=== PATIENT | male | born 1970 | race Caucasian/White ===

== ENCOUNTER → 2023-07-23 15:27 | Outpatient (CLI) | payer OTHER, SELFPAY ==
--- NOTE | ~2023-07-23 | XR_ITS ---
EXAMINATION: XR abdomen/kub 1V INDICATION: Left flank pain TECHNIQUE: Supine views of the abdomen were obtained on 2 radiographs. COMPARISON: Outside hospital CT dated 07/08/2023 FINDINGS: A 4 mm stone projects in the expected location of the left mid ureter lateral to the left L 4 transverse process. The stone was within the left kidney on the comparison examination. The bowel g as pattern is normal. Changes of right hip arthroplasty are noted. IMPRESSION: 1. 4 mm stone in the expected location of the left mid ureter. Reviewed, dictated and finalized at location F.
== END ==
PROVIDERS: PCP Urology; Visit Provider Urology
DX: N20.1 Calculus of ureter (principal)
CPT/HCPCS: 74018

== ENCOUNTER → 2023-07-31 11:51 | Outpatient (CLI) | payer OTHER, SELFPAY ==
--- NOTE | ~2023-07-31 | CT_ITS ---
EXAMINATION: CT abdomen pelvis wo con DATE: 07/31/2023 12:20 INDICATION: Left flank pain. Calcium kidney stones TECHNIQUE: Computed tomography (CT) of the abdomen and pelvis was performed without intravenous contr ast. Automated exposure control and iterative reconstruction technique were employed. Exam dose: 100 2.77 mGy-cm total exam DLP. COMPARISON: 07/23/2023 KUB FINDINGS: The lung bases are clear of infiltrate or consolidation. Normal heart size. No pericardial or pleural effusion. There are several hypoattenuating lesions of the hepatic dome measuring up to approximately 1.5 cm, i s likely hepatic cysts. The liver, gallbladder, bile ducts, pancreas, pancreatic duct, spleen and adr enal glands are otherwise unremarkable. Approximately 3.6 cm and left renal cysts. There is an approximately 4.3 mm proximal left ureteral calculus with minimal if any hydronephrosis. No other urinary tract calculus is detected. The urinary bladder is unremarkable. Mild prostate enlar gement and calcification. Small bilateral fat-containing inguinal hernias Normal caliber of the abdominal aorta. No intraperitoneal or retroperitoneal or pelvic mass lesion or adenopathy or ascites. Diverticulosis of left and right colon; no CT evidence of diverticulitis. Normal appendix. No bowel obstruction, bowel wall thickening, pneumatosis or intraperitoneal free air . Status post right total hip arthroplasty IMPRESSION: 4.2 mm proximal left ureteral calculus with minimal if any hydronephrosis Diverticulosis of the colon Normal appendix Hepatic cysts Renal cysts Reviewed, dictated and finalized at [facility]. Reviewed, dictated and finalized at location L.
--- NOTE | ~2023-07-31 | XR_ITS ---
XR abdomen/kub 1V DATE: 07/31/2023 12:20 INDICATION: Left flank pain. TECHNIQUE: AP projection, 2 views COMPARISON: 07/31/2023 CT abdomen pelvis 07/23/2023 KUB FINDINGS: There is an approximately 4 mm calcified calculus of the left ureter at the upper L5 level. No other urinary tract calcified calculus is noted. The psoas shadows are intact. No visceromegaly is evident. There is a moderately prominent amount of fecal material in the colon but no bowel obstruction. Status post right total hip arthroplasty. IMPRESSION: 4 mm calcified left ureteral stone at upper L5 level Reviewed, dictated and finalized at [facility]. Reviewed, dictated and finalized at location L.
== END ==
PROVIDERS: PCP Urology; Visit Provider Urology
DX: N20.1 Calculus of ureter (principal); K57.30 Diverticulosis of large intestine without perforation or abscess without bleeding; K76.89 Other specified diseases of liver; N28.1 Cyst of kidney, acquired
CPT/HCPCS: 74018; 74176